=== PATIENT | female | born 1985 | race Caucasian/White ===

== ENCOUNTER 2019-03-07 16:53 | Outpatient (CLI) | payer MEDICAID ==
[~2019-03-07] VITALS: Ht 157.5 cm; Wt 75.9 kg
[~2019-03-07 16:53] MED LIST: FERR27TA; PREN1TAB49
[2019-03-07 17:34] VITALS: Ht 157.5 cm; Wt 75.9 kg
== END 2019-03-07 20:48 | disposition home or self-care (01) ==
LOC: OBT 16:53 → L-D 16:54 → OBT 20:48
PROVIDERS: ATTEND Obstetrics & Gynecology
DX: O62.9 Abnormality of forces of labor, unspecified (principal); Z3A.25 25 weeks gestation of pregnancy
CPT/HCPCS: 76817; 81003; 87086; Z7500; G0463